=== PATIENT | male | born 1970 | race Caucasian/White ===

== ENCOUNTER → 2016-07-29 10:49 | Day surgery (SDC) | payer BC ==
[~2016-07-29 10:49] MED LIST: Albuterol 2.5 MG/3 ML NEB.SOL* (0.083%) ONE; Atracurium* 10 MG/ML 10 ML VIAL ONE; Buffered Lidocaine 1% SYRIN* 3 ML/SYR SYRINGE INTRADERM ONE; Famotidine IV* 10 MG/ML 2 ML (20 mg) IV ONE; Famotidine IV* 10 MG/ML 2 ML (20 mg) ONE; Gelatin ADSORBABLE (OPHTH)* OPHTH.FILM ONE; Gelfoam 12-7 ADSORBABLE* SPONGE ONE; Gelfoam Sponge SIZE 100* SPONGE ONE; Glycopyrrolate IV* 0.2 MG/ML 1 ML VIAL ONE; KETAMINE HCL* 50 MG/ML 10 ML VIAL ONE; Levalbuterol 0.63MG/3ML NEB INH ONE; Levalbuterol 1.25MG/0.5ML NEB ONE; Lidocaine 2% EPI 1:200000 MPF* 20 ML VIAL ONE; Lidocaine 2% PF* 10 ML AMP ONE; Lidocaine 2% W/EPI 1:100,000* 20 ML MDV ONE; Lidocaine 4% TOPICAL* 50 ML TOP.SOLN ONE; Midazolam* 1 MG/ML 5 ML VIAL (5 MG) ONE; Morphine INJ* 2 MG/ML 1 ML SYRINGE IV PRN; Neostigmine Methylsulfate* 2 MG/2 ML SYRINGE ONE; Oxymetazoline 0.05% NASAL SPR* 15 ML BTL ONE; PROCHLORPERAZINE INJ 5 MG/ML 2 ML VIAL IV PRN; PROCHLORPERAZINE INJ 5 MG/ML 2 ML VIAL ONE; Propofol* 10 MG/ML 20 ML BTL IV PUSH ONE; Scopolamine 1.5 mg* PATCH ONE; Scopolamine 1.5 mg* PATCH TRANSDERM PRN; Scopolomine PATCH Remove* 1 NOTE MISC PATCH OFF ONE; fentaNYL* 50 MCG/ML 2 ML VIAL (100 MCG VIAL) ONE; fentaNYL* 50 MCG/ML 5 ML VIAL (250 MCG VIAL) ONE; oxyCODONE/Acetamin 5/325 MG* TAB PO PRN
[2016-07-29] MEDS: fentaNYL* 50 MCG/ML 2 ML VIAL (100 MCG VIAL) IV PRN ×3 (15:15→15:27)
[2016-07-29 16:23] VITALS: BP 149/68
--- NOTE | 2016-07-30 13:26 | OP ---
DATE OF OPERATION: 07/29/16 - [facility] DATE OF : 68 SURGEON: Kingsley Del Toro MD ANESTHESIOLOGIST: Adam Hays MD ANESTHESIA: General PRE-OP DIAGNOSES: 1. Nasal polyposis. 2. Pansinusitis. POST-OP DIAGNOSES: 1. Nasal polyposis. 2. Pansinusitis. OPERATIVE PROCEDURE: Bilateral videoendoscopic maxillary antrostomy with removal of tissue within the maxillary sinuses, anterior and posterior ethmoidectomy, and bilateral sphenoid sinusotomy with removal of tissue. INDICATIONS: This 46-year-old gentleman, extensive sinusitis and nasal polyposis, had been having symptoms of nasal dyspnea, chronic sinusitis, failed medical management included immunotherapy. DESCRIPTION OF PROCEDURE: The patient was taken to the operating room and general anesthetic was given. The patient was intubated. The nose was decongested with Afrin-placed pledgets. 0-degree telescope, 30-degree telescope , and other endoscopic sinus surgery instruments including the balloon sinuplasty instruments were utilized. The CT scans were available in the operating room and were utilized for identification. Initially, we turned our attention to the left side. On examination with 0- degree telescope, the uncinate process, which was polypoidal in nature, the ethmoid region and the posterior ethmoidal cells and polyps were infiltrated with 2% lidocaine with epinephrine. Subsequently, microshaver was used to remove the ethmoids just medial to the middle turbinate so that the sphenoid face could be identified. We attempted several passes with the balloon to enter the sphenoid sinus, this was unsuccessful. Subsequently, just opened the sphenoid frontal face and removed thick copious mucoid material from the left sphenoid sinus. I then turned our attention to the right side. Here too, similarly posterior ethmoidal polyps were removed and the sphenoid front face was identified. Again, several passes of the balloon was unsuccessful. Therefore, I just went ahead and opened up the sinus. There were copious amounts of mucoid material thick, polyps removed from the sphenoid sinus. Some overlying hyperplastic mucosa was removed. Next, we turned our attention to the uncinate process on both sides. These were peeled out and the antrum was widely enlarged. Copious amounts of polyps were removed from both sides. We then turned our attention to the ethmoidal bulla resecting it out and then further coursing posteriorly towards the skull base and superiorly into the nasofrontal duct laterally towards the lamina papyracea removing as many cells as possible. The area was then packed with Gelfilm and Gelfoam on both sides with a spacer between the middle turbinate and lateral nasal wall. The patient was then awakened and sent to recovery room in stable condition. Instrument and sponge counts were correct. Blood loss was approximately 150 cc. [id number]/[facility] #: [id number] [facility]
== END | disposition home or self-care (01) ==
LOC: OR 10:49
PROVIDERS: ATTEND Otolaryngology
DX: J32.4 Chronic pansinusitis (principal); Z87.891 Personal history of nicotine dependence; J45.909 Unspecified asthma, uncomplicated
CPT/HCPCS: 88305; A9270-GY; J0780; J2001; J2250; J2704; J3010

== ENCOUNTER 2019-02-28 06:12 | Day surgery (SDC) | payer BC ==
--- NOTE | 2019-02-27 12:26 | HP ---
HISTORY AND PHYSICAL: DATE OF ADMISSION/SURGERY: 02/28/19 DATE OF OFFICE VISIT: 02/27/19 SURGEON: Juanita Gallego MD.* (DICTATED BY AMBER DE LA CRUZ) PROCEDURE: Right knee arthroscopy with partial meniscectomy, possible chondroplasty, possible synovectomy, and possible plica excision. CHIEF COMPLAINT: Right knee pain. HISTORY OF PRESENT ILLNESS: Mr. Barone is a 48-year-old gentleman with complaints of right knee pain. He has elected to proceed with a right knee arthroscopy. PAST MEDICAL HISTORY: Hypertension and asthma. PAST SURGICAL HISTORY: Left wrist surgery, 2 prior right knee surgeries. CURRENT MEDICATIONS: 1. Lisinopril 5 mg a day. 2. Symbicort. ALLERGIES: ADVAIR. FAMILY HISTORY: Coronary artery disease and diabetes. SOCIAL HISTORY: He is a 48-year-old gentleman, lives with his fiancee. He does not smoke or use drugs. Uses alcohol occasionally. REVIEW OF SYSTEMS: A complete 14-point review of systems was reviewed with the patient. It was all negative or noncontributory. He denies a history of DVT, PE, hepatitis, HIV, or anesthesia problems. PHYSICAL EXAMINATION GENERAL: He is well developed, well nourished, in no acute distress. VITAL SIGNS: He stands 71 inches tall, weighs 227 pounds. Blood pressure is 132/82, heart rate is 72. HEENT: Normocephalic, atraumatic. NECK: Supple. No palpable lymph nodes. PULMONARY: The lungs are clear to auscultation bilaterally. CARDIO: Regular rate and rhythm. Strong S1, S2. ABDOMEN: Soft, nontender, nondistended. NEUROLOGICAL: He is alert and oriented x3. MUSCULOSKELETAL: Right lower extremity: The skin is intact. There are no open wounds or abrasions. Range of motion is 10 to 100 degrees of flexion. Positive Apley's and Jamie's. Negative Marita's. He is tender along the medial joint line. There is a moderate effusion, and he walks with a slightly antalgic-type gait favoring his right knee. He has a 2+ dorsalis pedis pulse. He is able to dorsiflex and plantarflex and has intact sensation. ASSESSMENT AND PLAN: Mr. Barone is a 48-year-old gentleman with complaints of right knee pain. An MRI shows a medial meniscus tear and a small joint effusion. He has elected to proceed with a right knee arthroscopy with partial meniscectomy, possible chondroplasty, possible synovectomy, and possible plica excision. The surgery is scheduled for 02/28/[address] Gallego discussed the risks and benefits of the surgery at today's visit and all of his questions were answered. He will follow up with Dr. Gallego 2 weeks after the surgery. AMBER DE LA CRUZ [id number]/[facility] [place] #: [id number] TAMMY
[~2019-02-28 06:12] MED LIST changes: -Albuterol 2.5 MG/3 ML NEB.SOL* (0.083%) ONE; -Atracurium* 10 MG/ML 10 ML VIAL ONE; +Buffered Lidocaine 1% SYRIN* 1 ML/SYRINGE INTRADERM ONE; -Buffered Lidocaine 1% SYRIN* 3 ML/SYR SYRINGE INTRADERM ONE; +Dexamethasone IV* 4 MG/ML 1 ML (4 MG) IV SLOW PU ONE; -Famotidine IV* 10 MG/ML 2 ML (20 mg) ONE; -Gelatin ADSORBABLE (OPHTH)* OPHTH.FILM ONE; -Gelfoam 12-7 ADSORBABLE* SPONGE ONE; -Gelfoam Sponge SIZE 100* SPONGE ONE; -Glycopyrrolate IV* 0.2 MG/ML 1 ML VIAL ONE; -KETAMINE HCL* 50 MG/ML 10 ML VIAL ONE; +Lactated Ringers 1000 ML Bag* 1,000 ML IV SCH; -Levalbuterol 0.63MG/3ML NEB INH ONE; -Levalbuterol 1.25MG/0.5ML NEB ONE; -Lidocaine 2% EPI 1:200000 MPF* 20 ML VIAL ONE; -Lidocaine 2% PF* 10 ML AMP ONE; -Lidocaine 2% W/EPI 1:100,000* 20 ML MDV ONE; -Lidocaine 4% TOPICAL* 50 ML TOP.SOLN ONE; -Midazolam* 1 MG/ML 5 ML VIAL (5 MG) ONE; -Morphine INJ* 2 MG/ML 1 ML SYRINGE IV PRN; -Neostigmine Methylsulfate* 2 MG/2 ML SYRINGE ONE; -Oxymetazoline 0.05% NASAL SPR* 15 ML BTL ONE; -PROCHLORPERAZINE INJ 5 MG/ML 2 ML VIAL IV PRN; -PROCHLORPERAZINE INJ 5 MG/ML 2 ML VIAL ONE; -Propofol* 10 MG/ML 20 ML BTL IV PUSH ONE; -Scopolamine 1.5 mg* PATCH ONE; -Scopolamine 1.5 mg* PATCH TRANSDERM PRN; -Scopolomine PATCH Remove* 1 NOTE MISC PATCH OFF ONE; -fentaNYL* 50 MCG/ML 2 ML VIAL (100 MCG VIAL) ONE; -fentaNYL* 50 MCG/ML 5 ML VIAL (250 MCG VIAL) ONE; -oxyCODONE/Acetamin 5/325 MG* TAB PO PRN
[2019-02-28] MEDS ORDERED: Dexamethasone IV* 4 MG/ML 1 ML (4 MG) ONE (06:30)
[2019-02-28] MEDS ORDERED: ceFAZolin 2 GM in NS PREMIX(*) 2 GM/100 ML BAG IVPB ONE (06:31)
[2019-02-28] MEDS ORDERED: Famotidine IV* 10 MG/ML 2 ML (20 mg) ONE (06:31)
[2019-02-28] MEDS ORDERED: EPINEPHRINE 1 MG/ML 1 ML VIAL ONE (06:54)
[2019-02-28] MEDS ORDERED: ROPIVACAINE 5 MG/ML 30 ML BTL (0.5%) ONE (06:54)
[2019-02-28] MEDS ORDERED: methylPREDNISolone ACETATE 80* 80 MG/ML 1 ML VIAL ONE (06:54)
[2019-02-28] MEDS ORDERED: Levalbuterol 0.63MG/3ML NEB* UNIT OF USE INH ONE ×2 (07:21→07:26)
[2019-02-28] MEDS ORDERED: Phenylephrine 10 MG/ML VIAL* 1 ML VIAL ONE (07:29)
[2019-02-28] MEDS ORDERED: Ondansetron INJ* 2 MG/ML VIAL ONE ×2 (07:31→10:30)
[2019-02-28] MEDS ORDERED: Propofol* 10 MG/ML 20 ML BTL ONE (07:31)
[2019-02-28] MEDS ORDERED: Lidocaine 2% PF * 5 ML VIAL ONE (07:31)
[2019-02-28] MEDS ORDERED: Ketorolac INJ* 30 MG/ML 1 ML VIAL ONE (07:31)
[2019-02-28] MEDS ORDERED: EPHEDrine (Pressors)* 50 MG/ML VIAL ONE (07:32)
[2019-02-28] MEDS ORDERED: Midazolam* 1 MG/ML 5 ML VIAL (5 MG) ONE (07:36)
[2019-02-28] MEDS ORDERED: fentaNYL* 50 MCG/ML 5 ML VIAL (250 MCG VIAL) ONE (07:37)
[2019-02-28] MEDS ORDERED: Naloxone* 0.4 MG/ML 1 ML VIAL IV PRN (08:27)
[2019-02-28] MEDS ORDERED: oxyCODONE/Acetamin 5/325 MG* TAB PO PRN (08:27)
[2019-02-28] MEDS ORDERED: fentaNYL* 50 MCG/ML 2 ML VIAL (100 MCG VIAL) IV PRN (08:27)
[2019-02-28] MEDS ORDERED: Ondansetron INJ* 2 MG/ML VIAL IV PRN (08:27)
[2019-02-28] MEDS ORDERED: DiMENhydriNATE IV* 50 MG/ML VIAL IV PUSH PRN (08:27)
[2019-02-28] MEDS ORDERED: fentaNYL* 50 MCG/ML 2 ML VIAL (100 MCG VIAL) ONE (09:33)
[2019-02-28] MEDS ORDERED: oxyCODONE/Acetamin 5/325 MG* TAB ONE (09:55)
[2019-02-28 11:12] VITALS: BP 136/86
--- NOTE | 2019-03-01 02:56 | OP ---
DATE OF OPERATION: 02/28/19 - [facility] DATE OF : 68 SURGEON: Juanita Gallego MD PARKING LOT SPOTTER: AMBER Suazo. Mr. Burch did help throughout the procedure with preparation of the leg, wound retraction, manipulation of the knee, and wound closure. ANESTHESIOLOGIST: Dr. Tatum. ANESTHESIA: General. PRE-OP DIAGNOSIS: Right knee medial meniscal tear. POST-OP DIAGNOSIS: Right knee medial meniscal tear, mild to moderate osteoarthritic changes. OPERATIVE PROCEDURE: Right knee arthroscopy with partial medial meniscectomy. BRIEF HISTORY/INDICATIONS: Mr. Barone is a 48-year-old gentleman who has been suffering with severe right knee pain and mechanical symptoms. MRI confirmed a medial meniscal tear. He failed conservative treatment. Due to continued pain and decreased quality of life, he elected to undergo right knee arthroscopy. Informed consent was obtained from the patient. He understood the risks of surgery included, but were not limited to bleeding, infection, damage to nearby structures, continued pain, need for further surgery, retear of the meniscus, stroke, heart attack, blood clot, and . He wished to proceed. COMPLICATIONS: None. ESTIMATED BLOOD LOSS: Less than 25 mL. SPECIMEN: None. INTRAOPERATIVE FINDINGS: Intraoperatively, the patient was noted to have a parrot- beak type tear in the posterior medial meniscus. This involved the white-red zone. He had some grade 2 and 3 Outerbridge cartilage changes in the medial and patellofemoral compartment. No large surface areas of exposed subchondral bone. He did have several loose bodies in the knee joint, which were less than 0.5 cm in diameter. It did appear to be cartilage. DESCRIPTION OF PROCEDURE: Mr. Barone was identified in the preanesthesia unit. His right lower extremity was marked as the correct operative side. Informed consent was signed and placed in the chart. The patient was taken to the operating room and placed under anesthesia without complications. Right lower extremity was prepped and draped in the usual sterile fashion. Preoperative time-out was made to correctly identify the patient, side, and site. Appropriate perioperative antibiotics were given within 1 hour of the incision. A standard 0.5 cm anterolateral portal incision was made with a 10 blade and carried down to the capsule. Trocar was introduced. As soon as the light and water sources were turned on, there was immediate visualization of the suprapatellar pouch. A tour of the knee joint was performed. Suprapatellar pouch had no obvious abnormality. There were some cartilage fragments noted with small loose bodies in the joint fluid. Patellofemoral joint had some cartilage fissures along the trochlear groove of the femur. No large areas of exposed subchondral bone. These were grade 2 and 3 Outerbridge cartilage changes. Medial gutter showed no plica. There were some small loose bodies which once again resembled cartilage fragments. Medial compartment showed some grade 2 and 3 Outerbridge cartilage changes along the medial femoral condyle cartilage. A medial meniscal tear was evident. This appeared to be a parrot- beak type tear with some anterior displacement in the posterior one-third of the medial meniscus. ACL and PCL appeared to be intact. The knee was placed in a [id number] position. There were no significant cartilage changes in the lateral compartment. No obvious meniscal tear. Under direct visualization, a medial portal incision was made with a 10 blade. A probe was introduced and a second tour of the knee joint was performed. No additional findings were noted. A shaver was introduced into the joint. Any small cartilage loose bodies in the joints were carefully removed. Next, straight biter and shaver were used to perform partial medial meniscectomy. The meniscal tear was carefully excised from the red-white zone. A smooth border of the meniscus was obtained. Further probing of the meniscus showed no additional tears. Radiofrequency ablation wand was used to further smooth the edge of the medial meniscus. The knee was copiously irrigated with sterile saline. All instruments were removed. The incisions were closed with 3-0 nylon suture. Sterile Xeroform, 4x4s, and Webril were used to cover the incision. Ihsan wrap and cold pack were placed over this. The patient's anesthesia was reversed without difficulty. He was taken to the PACU in stable condition. Intended weightbearing will be weightbearing as tolerated. Intended DVT prophylaxis will be aspirin. [id number]/[facility] #: [id number] TAMMY
== END 2019-02-28 11:12 | disposition home or self-care (01) ==
LOC: OR 06:12
PROVIDERS: ATTEND Orthopaedic Surgery Adult Reconstructive Orthopaedic Surgery
DX: S83.241A Other tear of medial meniscus, current injury, right knee, initial encounter (principal); M17.11 Unilateral primary osteoarthritis, right knee; I10 Essential (primary) hypertension; J45.909 Unspecified asthma, uncomplicated; X58.XXXA Exposure to other specified factors, initial encounter; Y92.9 Unspecified place or not applicable
CPT/HCPCS: A9270-GY; J0690; J1040; J1100; J1885; J2250; J2405; J2704; J2795; J3010